=== PATIENT | female | born 1965 | race Caucasian/White ===

== ENCOUNTER 2024-04-26 14:04 | Emergency (ER) | payer OTHER ==
[2024-04-26 15:48] LABS: Absolute Basophils 0.1 K/uL (0-0.5); Absolute Eosinophils 1.1 K/uL (0-0.5); Absolute Lymphocytes (CBC) 2.3 K/uL (0.7-4.9); Absolute Monocytes 0.6 K/uL (0.1-1.3); Absolute Neutrophil 5.1 K/uL (1.8-8.0); Basophils % 0.7 % (0-1.3); Eosinophils % 12.2 % (0-4.4); Hemoglobin 16.3 g/dL (12.0-15.0); Lymphocytes % 25.1 % (15.3-44.8); MCH 32.8 pg (27.0-35.0); MCHC 34.6 g/dL (32.0-36.0); MCV 94.7 fL (80-100); MPV 9.2 fL (7.6-11.3); Monocytes % 6.8 % (3.3-12.3); Neutrophils % 55.2 % (41.7-73.7); Platelets 211 thou/uL (152-406); RBC Red Blood Cell Count 4.97 M/uL (3.86-4.86); Red Cell Distribution Width 12.7 % (12.1-15.2)
[2024-04-26] MEDS ORDERED: FAMOTIDINE 20 MG/2 ML VIAL IV ONE (16:01)
[2024-04-26 16:04] LABS: Albumin 4.1 g/dL (3.4-5.0); Albumin/Globulin Ratio 1.1 (1.1-1.8); Bilirubin Total 0.5 mg/dL (0.2-1.0); Globulin 3.8 g/dL (2.3-3.5); Protein, Total 7.9 g/dL (6.4-8.2)
--- NOTE | 2024-04-26 16:50 | RAD REPORT ---
EXAMINATION: CT Abdomen Pelvis W Contrast CLINICAL INDICATION: Female, 58 years old. ABD PAIN TECHNIQUE: CT abdomen and pelvis was performed, after the administration of IV contrast, as per [facility] protocol. Axial, sagittal and coronal reconstructions were obtained. One or more of the following dose reduction techniques were used: Automated exposure control, adjustment of the mA and k V according to patient size, and iterative reconstruction. Unless otherwise specified, incidental findings do not require dedicated imaging follow-up. COMPARISON: No prior exam. FINDINGS: LOWER CHEST: The visualized lung bases are clear. LIVER: Normal in size and contour. Multiple subcentimeter hypoattenuating parenchymal lesions, nonspe cific, but may suggest small cysts. No suspicious focal lesion. BILIARY SYSTEM: No suspicious abnormalities. SPLEEN: Normal size. No focal lesion. PANCREAS: No mass, ductal dilation, or ubaldo-pancreatic fluid. ADRENALS: Normal; no mass. KIDNEYS: Normal size and contour. No hydronephrosis. URINARY BLADDER: Suboptimally distended limiting evaluation. GASTROINTESTINAL TRACT: Fluid opacification along the ascending and proximal transverse colon, nonspe cific. No evidence of free air, significant intra-abdominal free fluid, bowel obstruction or abscess. APPENDIX: Normal appendix. LYMPH NODES: No lymphadenopathy. MUSCULOSKELETAL: No acute or suspicious osseous abnormality. ADDITIONAL FINDINGS: None. IMPRESSION: Nonspecific fluid opacification of nondistended ascending and proximal transverse colon, this may rel ate to diarrheal state. No other acute or concerning abnormalities seen in the abdomen or pelvis.
--- NOTE | 2024-04-26 17:00 | EDPHYS ---
Physician Documentation [facility] Name: Stephania Brunson Age: 58 yrs Sex: Female : 1965 Arrival Date: 04/26/2024 Time: 14:04 Bed 10 Private MD: ED Physician Julien Sanchez HPI: 04/26 15:33 This 58 yrs old Female presents to ER via Ambulatory with complaints of Abdominal Pain, ms3 Diarrhea. 16:49 Stephania Brunson presents to the Emergency Department with persistent epigastric abdominal ms3 pain. The patient also reports diarrhea and significant stomach pain, both persisting for the past two months. An upper endoscopy was performed last week by Dr. Poe, which revealed gastritis in the antrum and a hiatal hernia at the distal end of the esophagus. The patient's current pain level is 7 out of 10. The patient is not on any current anti-acid medications.. Historical: - Allergies: 14:15 No Known Allergies; tm6 - PMHx: 14:15 Depressive disorder; tm6 - PSHx: 14:15 partial hysterectomy; breast implants; tm6 - Immunization history:: Flu vaccine is not up to date. - Infectious Disease History:: Denies. - Social history:: Smoking status: Patient denies any tobacco usage or history of. ROS: 16:49 Constitutional: Negative for fever, and chills. Cardiovascular: Negative for chest ms3 pain, and palpitations. Respiratory: Negative for shortness of breath, cough, wheezing, and pleuritic chest pain, 16:49 MS/Extremity: Negative for injury and deformity, Skin: Negative for injury, rash, and discoloration, 16:49 Abdomen/GI: Positive for abdominal pain, diarrhea, Exam: 16:49 Constitutional: This is a well developed, well nourished patient who is awake, alert, ms3 and in no acute distress. Chest/axilla: Normal chest wall appearance and motion. Nontender with no deformity. Cardiovascular: Regular rate and rhythm with a normal S1 and S2. No gallops, murmurs, or rubs. Normal PMI, no JVD. No pulse deficits. Respiratory: Lungs have equal breath sounds bilaterally, clear to auscultation and percussion. No rales, rhonchi or wheezes noted. No increased work of breathing, no retractions or nasal flaring. 16:49 Abdomen/GI: Inspection: abdomen appears normal, Bowel sounds: normal, Palpation: moderate abdominal tenderness, in the epigastric area, Vital Signs: 14:14 BP 138 / 84; Pulse 68; Resp 17; Temp 98.2(O); Pulse Ox 100% on R/A; MAP 97 mmHg; Weight tm6 72.57 kg; Height 5 ft. 7 in. ; Pain 7/10; 14:14 Body Mass Index 25.06 (72.57 kg, 170.18 cm) tm6 14:14 Pain Scale: Adult tm6 MDM: 14:32 Medical Screening Exam initiated ms3 16:49 Differential diagnosis: Nonspecific abd pain, gastritis, pancreatitis. ms3 20:39 Data reviewed: vital signs, nurses notes, lab test result(s), radiologic studies, and ms3 as a result, I will discharge patient. I considered the following discharge prescriptions or medication management in the emergency department Medications were administered in the Emergency Department. See MAR. Counseling: I had a detailed discussion with the patient and/or guardian regarding the historical points, exam findings, and any diagnostic results supporting the discharge/admit diagnosis, lab results, radiology results, the need for outpatient follow up, to return to the emergency department if symptoms worsen or persist or if there are any questions or concerns that arise at home. Special discussion: Based on the patient's Hx, exam, and Dx evaluation, there is no indication for emergent surgery or inpatient Tx. It is understood by the patient/guardian that if the Sx's persist or worsen they need to return immediately for re-evaluation. ED course: Discussed labs and imaging with the patient and her . Patient to follow-up with Dr. Spaulding in 2 to 3 days. Patient understands and agrees with plan. Patient given prescription for Pepcid 20 mg twice daily. Return precautions discussed include worsening symptoms, or any other concerns. 04/26 14:32 Order name: CBC with Diff; Complete Time: 16:44 ms3 04/26 14:32 Order name: CMP; Complete Time: 16:44 ms3 04/26 14:32 Order name: Lipase; Complete Time: 16:44 ms3 04/26 14:32 Order name: CT Abd/Pelvis - IV Contrast Only; Complete Time: 16:54 ms3 04/26 14:32 Order name: IV Saline Lock; Complete Time: 15:56 ms3 04/26 14:32 Order name: Labs collected and sent; Complete Time: 15:56 ms3 Administered Medications: 16:11 Drug: Famotidine IVP 20 mg IVP once; dilute with 10 mL 0.9% NaCl; give over 2 minutes jb4 Route: IVP; Site: right antecubital; 17:16 Follow up: Response: No adverse reaction; Marked relief of symptoms jb4 Disposition Summary: 04/26/24 17:00 Discharge Ordered Notes: Location: Home ms3 Condition: Stable ms3 Diagnosis - Upper abdominal pain, unspecified ms3 - Diarrhea, unspecified ms3 - Polycythemia vera ms3 Followup: ms3 - With: Yimi Poe MD - When: 2 - 3 days - Reason: Re-evaluation by your physician Discharge Instructions: - Discharge Summary Sheet ms3 - Abdominal Pain, Adult ms3 - Diarrhea, Adult ms3 Forms: - Medication Reconciliation Form ms3 - Antibiotic Education ms3 - Prescription Opioid Use ms3 - Patient Portal Instructions ms3 - Leadership Thank You Letter ms3 Prescriptions: - Pepcid 20 mg Oral Tablet - take 1 tablet ORAL route every 12 hours for 10 days; 20 tablet; Refills: 0, ms3 Product Selection Permitted Signatures: Dispatcher [employer] Gómez Seymour, RN RN jb4 Julien Sanchez DO DO ms3 Milana Denis RN RN tm6
--- NOTE | 2024-04-26 17:00 | ER ---
Nurse's Notes [facility] Name: Stephania Brunson Age: 58 yrs Sex: Female : 1965 Arrival Date: 04/26/2024 Time: 14:04 Bed 10 Private MD: Diagnosis: Upper abdominal pain, unspecified;Diarrhea, unspecified;Polycythemia vera Presentation: 04/26 14:15 Chief complaint: Patient states: been dealing with epigastric pain x2 months, will not tm6 go away. I had an upper GI scope done last week, have not gotten results yet. My throat is hoarse, I have a cough. I have had diarrhea x2 months. It feels like I constantly have to have a bowel movement. Coronavirus screen: Client denies travel out of the [place] in the last 14 days. Ebola Screen: Patient negative for fever greater than or equal to 101.5 degrees Fahrenheit, and additional compatible Ebola Virus Disease symptoms Patient denies exposure to infectious person. Patient denies travel to an Ebola-affected area in the 21 days before illness onset. No symptoms or risks identified at this time. Initial Sepsis Screen: Does the patient meet any 2 criteria? No. Patient's initial sepsis screen is negative. Does the patient have a suspected source of infection? No. Patient's initial sepsis screen is negative. Risk Assessment: Do you want to hurt yourself or someone else? Patient reports no desire to harm self or others. Onset of symptoms was February 25, 2024. 14:15 Method Of Arrival: Ambulatory tm6 14:15 Acuity: ZAK 3 tm6 Triage Assessment: 14:15 General: Appears in no apparent distress. Behavior is calm, cooperative. Pain: tm6 Complains of pain in epigastric area. EENT: No signs and/or symptoms were reported regarding the EENT system. EENT: Reports hoarseness. Neuro: Level of Consciousness is awake, alert, obeys commands, Oriented to person, place, time, situation. Cardiovascular: Patient's skin is warm and dry. Respiratory: Reports cough that is Airway is patent Respiratory effort is even, unlabored, Respiratory pattern is. GI: Reports diarrhea, epigastric pain, since x2 months. : No signs and/or symptoms were reported regarding the genitourinary system. Derm: No signs and/or symptoms reported regarding the dermatologic system. Musculoskeletal: No signs and/or symptoms reported regarding the musculoskeletal system. Historical: - Allergies: 14:15 No Known Allergies; tm6 - PMHx: 14:15 Depressive disorder; tm6 - PSHx: 14:15 partial hysterectomy; breast implants; tm6 - Immunization history:: Flu vaccine is not up to date. - Infectious Disease History:: Denies. - Social history:: Smoking status: Patient denies any tobacco usage or history of. Screenin:14 [facility] ED Fall Risk Assessment (Adult) History of falling in the last 3 months, jb4 including since admission No falls in past 3 months (0 pts) Confusion or Disorientation No (0 pts) Intoxicated or Sedated No (0 pts) Impaired Gait No (0 pts) Mobility Assist Device Used No (0 pt) Altered Elimination No (0 pt) Score/Fall Risk Level 0 - 2 = Low Risk Oriented to surroundings, Maintained a safe environment. Abuse screen: Denies threats or abuse. Nutritional screening: No deficits noted. Tuberculosis screening: No symptoms or risk factors identified. Assessment: 17:14 Reassessment: Patient appears in no apparent distress at this time. Patient and/or jb4 family updated on plan of care and expected duration. Pain level reassessed. Patient is alert, oriented x 3, equal unlabored respirations, skin warm/dry/pink. Patient states feeling better. Vital Signs: 14:14 BP 138 / 84; Pulse 68; Resp 17; Temp 98.2(O); Pulse Ox 100% on R/A; MAP 97 mmHg; Weight tm6 72.57 kg; Height 5 ft. 7 in. ; Pain 7/10; 14:14 Body Mass Index 25.06 (72.57 kg, 170.18 cm) tm6 14:14 Pain Scale: Adult tm6 ED Course: 14:06 Patient arrived in ED. mr 14:11 Julien Sanchez DO is Attending Physician. ms3 14:15 Arm band placed on left wrist. tm6 14:18 Triage completed. tm6 15:24 Patient placed in an exam room, on a stretcher. ll1 15:40 Inserted saline lock: 18 gauge in right antecubital area, using aseptic technique. jb4 Blood collected. 15:56 CBC with Diff Sent. jb4 15:56 CMP Sent. jb4 15:56 Lipase Sent. jb4 16:18 CT Abd/Pelvis - IV Contrast Only In Process Unspecified. EDMS 16:59 Yimi Poe MD is Referral Physician. ms3 17:14 Patient has correct armband on for positive identification. Bed in low position. Call jb4 light in reach. Side rails up X 1. Provided Education on: discharge instructions.. 17:14 No provider procedures requiring assistance completed. IV discontinued, intact, jb4 bleeding controlled, No redness/swelling at site. Pressure dressing applied. Administered Medications: 16:11 Drug: Famotidine IVP 20 mg IVP once; dilute with 10 mL 0.9% NaCl; give over 2 minutes jb4 Route: IVP; Site: right antecubital; 17:16 Follow up: Response: No adverse reaction; Marked relief of symptoms jb4 Medication: 17:14 VIS not applicable for this client. jb4 Outcome: 17:00 Discharge ordered by . ms3 17:16 Discharged to home ambulatory, with family, jb4 17:16 Condition: stable 17:16 Discharge instructions given to patient, Instructed on discharge instructions, follow up and referral plans. medication usage, Demonstrated understanding of instructions, follow-up care, medications, Prescriptions given X 1, 17:17 Patient left the ED. jb4 Signatures: Dispatcher [employer] EDCO Alice Meehan, Reg Reg mr Gómez Bowling, RN RN jb4 Rylie Kiran RN RN ll1 Julien Sanchez DO DO ms3 Milana Denis, RN RN tm6
[2024-04-26 17:57] VITALS: BP 138/84; TEMP 98.2; O2SAT 100
== END 2024-04-26 17:17 | disposition home or self-care (01) ==
LOC: ER 14:04
DX: R10.13 Epigastric pain (principal); R19.7 Diarrhea, unspecified; D45 Polycythemia vera; Z98.82 Breast implant status
CPT/HCPCS: 85025; 36415; 83690; 80053; 74177; 96374; 99284; Q9967

== ENCOUNTER 2024-05-01 17:13 | Emergency (ER) | payer OTHER ==
--- NOTE | 2024-05-01 18:00 | RAD REPORT ---
EXAM: Chest Single View HISTORY: ABDOMINAL DISTENTION COMPARISON: None. FINDINGS: LUNGS/PLEURA: The lungs are clear. No pleural effusions or pneumothorax. No pulmonary edema. MEDIASTINUM: The mediastinal silhouette is within normal limits. CARDIAC: The cardiac silhouette is within normal limits. UPPER ABDOMEN: No significant abnormality. BONES: No acute abnormality. LINES/TUBES/OTHER: N/A IMPRESSION: No evidence of acute cardiopulmonary disease.
[2024-05-01 18:09] LABS: PT Prothrombin Time 11.4 SECONDS (9.4-12.5); Protime INR 1.09
[2024-05-01] MEDS ORDERED: FENTANYL CITR 100 MCG/2 ML ONE (18:09)
[2024-05-01] MEDS ORDERED: FAMOTIDINE 20 MG/2 ML VIAL IV ONE (18:09)
[2024-05-01] MEDS ORDERED: ONDANSETRON 4 MG/2 ML VIAL ONE (18:09)
[2024-05-01 18:15] LABS: Absolute Basophils 0.1 K/uL (0-0.5); Absolute Eosinophils 0.2 K/uL (0-0.5); Absolute Lymphocytes (CBC) 2.4 K/uL (0.7-4.9); Absolute Monocytes 0.6 K/uL (0.1-1.3); Basophils % 0.8 % (0-1.3); Eosinophils % 2.3 % (0-4.4); Hematocrit 44.8 % (36.0-45.0); Hemoglobin 15.5 g/dL (12.0-15.0); Lymphocytes % 25.5 % (15.3-44.8); MCH 32.8 pg (27.0-35.0); MCHC 34.5 g/dL (32.0-36.0); MPV 8.6 fL (7.6-11.3); Monocytes % 6.2 % (3.3-12.3); Neutrophils % 65.2 % (41.7-73.7); Nucleated Red Blood Cells % 0.1 % (0-0); Platelets 202 thou/uL (152-406); RBC Red Blood Cell Count 4.71 M/uL (3.86-4.86); Red Cell Distribution Width 12.8 % (12.1-15.2)
[2024-05-01 18:24] LABS: Albumin 3.8 g/dL (3.4-5.0); Albumin/Globulin Ratio 1.1 (1.1-1.8); Anion Gap 9.6 mEq/L (5.0-15.0); Bilirubin Direct 0.2 mg/dL (0-0.2); Bilirubin Indirect, Calculated 0.6 mg/dL (0.2-0.8); Bilirubin Total 0.8 mg/dL (0.2-1.0); Globulin 3.6 g/dL (2.3-3.5); Magnesium 2.1 mg/dL (1.6-2.4); Potassium 3.6 mEq/L (3.5-5.1); Protein, Total 7.4 g/dL (6.4-8.2); Troponin High Sensitivity 3.3 pg/mL (<58.9)
--- NOTE | 2024-05-01 19:08 | RAD REPORT ---
EXAMINATION: CT ABDOMEN AND PELVIS WITH CONTRAST CLINICAL INDICATION: Female, 58 years old.ABD PAIN TECHNIQUE: CT abdomen and pelvis was performed, after the administration of IV contrast[facility]. Axial, sagittal and coronal reconstructions were obtained. One or more of the following dose reduction techniques were used: Automated exposure control, adjustment of the mA and/o r kV according to patient size, and/or iterative reconstruction. Unless otherwise specified, incidental findings do not require dedicated imaging follow-up. [id number]. COMPARISON: 04/26/2024 FINDINGS: LOWER CHEST: No acute process identified.No significant pericardial effusion. Bilateral breast prosth eses.Mild circumferential thickening of the distal esophagus which could reflect esophagitis. UPPER GI: No significant abnormality. LIVER: Benign appearing low density liver lesions. No suspicious mass. GALLBLADDER/BILE DUCTS: No biliary ductal dilatation.? PANCREAS: No mass, ductal dilation, or ubaldo-pancreatic fluid. SPLEEN: Unremarkable. ADRENALS: No adrenal masses. KIDNEYS AND URETERS: No hydronephrosis.No suspicious renal mass. ABDOMINAL AORTA AND OTHER VESSELS: Normal caliber aorta and IVC. PERITONEUM: No abnormal free fluid. No free air. LYMPH NODES: No pathologic lymphadenopathy. ABDOMINAL WALL: Unremarkable SMALL BOWEL/COLON: Small bowel has normal course and caliber. No colonic wall thickening or pericolon ic inflammatory changes.Normal appendix. Small bowel fluid on the prior exam is not well assessed on this exam as there is now oral contrast. URINARY BLADDER: Underdistended but grossly unremarkable. REPRODUCTIVE ORGANS: Uterus surgically absent. No adnexal abnormality. MUSCULOSKELETAL: No acute or suspicious osseous abnormality. 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 ADDITIONAL FINDINGS: None. IMPRESSION: No acute or significant abnormalities seen in the abdomen or pelvis. Normal appendix.
[2024-05-01] MEDS ORDERED: MAGNES/ALUMIN/SIMET 30ML UCUP ONE (19:30)
[2024-05-01] MEDS ORDERED: LIDOCAINE VISCOUS 2% 10ML ORAL SOLN ONE (19:30)
[2024-05-01] MEDS ORDERED: PANTOPRAZOLE 40 MG INJ ONE (19:31)
--- NOTE | 2024-05-01 19:39 | ER ---
Nurse's Notes [facility] Name: Stephania Brunson Age: 58 yrs Sex: Female : 1965 Arrival Date: 05/01/2024 Time: 17:13 Bed 8 Private MD: Diagnosis: Diarrhea, unspecified;Abdominal pain, Generalized;Epigastric abdominal tenderness;Congenital hiatus hernia Presentation: 05/01 17:27 Chief complaint: Patient states: "I was seen here a few days ago and I am not getting aa5 better, I haven't eaten in 2 days and I am still having abdominal pain". Coronavirus screen: diarrhea. Ebola Screen: Patient denies travel to an Ebola-affected area in the 21 days before illness onset. Initial Sepsis Screen: Does the patient meet any 2 criteria? No. Patient's initial sepsis screen is negative. Does the patient have a suspected source of infection? No. Patient's initial sepsis screen is negative. Risk Assessment: Do you want to hurt yourself or someone else? Patient reports no desire to harm self or others. Onset of symptoms was May 01, 2024. 17:27 Acuity: ZAK 3 aa5 17:27 Method Of Arrival: Ambulatory aa5 Historical: - Allergies: 17:29 No Known Allergies; aa5 - Home Meds: 17:29 Cymbalta oral [Active]; aa5 - PMHx: 17:29 depressive disorder; aa5 - PSHx: 17:29 breast implants; partial hysterectomy; aa5 - Immunization history:: Adult Immunizations unknown. - Infectious Disease History:: Denies. - Social history:: Smoking status: Patient denies any tobacco usage or history of. - Family history:: not pertinent. Screenin:14 [facility] ED Fall Risk Assessment (Adult) History of falling in the last 3 months, ph including since admission No falls in past 3 months (0 pts) Confusion or Disorientation No (0 pts) Intoxicated or Sedated No (0 pts) Impaired Gait No (0 pts) Mobility Assist Device Used No (0 pt) Altered Elimination No (0 pt) Score/Fall Risk Level 0 - 2 = Low Risk Oriented to surroundings, Maintained a safe environment, Hourly rounding (assess needs \\T\\ fall precautionary measures) done. Abuse screen: Denies threats or abuse. Denies injuries from another. Nutritional screening: No deficits noted. Tuberculosis screening: No symptoms or risk factors identified. Assessment: 18:30 General: Appears in no apparent distress. comfortable, well groomed, Behavior is calm, ph cooperative, appropriate for age. General: Behavior is. Pain: Complains of pain in abdomen. Neuro: Level of Consciousness is awake, alert, obeys commands, Oriented to person, place, time, situation. Cardiovascular: Capillary refill < 3 seconds in bilateral fingers Patient's skin is warm and dry. Respiratory: Airway is patent Respiratory effort is even, labored. GI: Reports lower abdominal pain, upper abdominal pain. Derm: Skin is pink, warm \\T\\ dry. 19:54 Reassessment: Patient appears in no apparent distress at this time. Patient and/or bm8 family updated on plan of care and expected duration. Pain level reassessed. Patient is alert, oriented x 3, equal unlabored respirations, skin warm/dry/pink. General: Appears in no apparent distress. comfortable, Behavior is calm, cooperative, appropriate for age. Pain: Denies pain. Neuro: No deficits noted. Level of Consciousness is awake, alert, obeys commands, Oriented to person, place, time, situation, Appropriate for age. Cardiovascular: Denies chest pain, Capillary refill < 3 seconds in bilateral fingers Patient's skin is warm and dry. Respiratory: Airway is patent Respiratory effort is even, unlabored, Respiratory pattern is regular, symmetrical. GI: No signs and/or symptoms were reported involving the gastrointestinal system. Abdomen is flat, non-distended, Bowel sounds present X 4 quads. Abd is soft and non tender Patient currently denies abdominal pain, nausea, pain. : No signs and/or symptoms were reported regarding the genitourinary system. EENT: No signs and/or symptoms were reported regarding the EENT system. Derm: No signs and/or symptoms reported regarding the dermatologic system. Musculoskeletal: No signs and/or symptoms reported regarding the musculoskeletal system. Vital Signs: 17:27 BP 133 / 93; Pulse 76; Resp 16 S; Temp 98.4(O); Pulse Ox 100% on R/A; Weight 72.57 kg aa5 (R); Height 5 ft. 7 in. (R); 19:54 BP 142 / 82; Pulse 63; Resp 17; Temp 98.4; Pulse Ox 100% ; Pain 0/10; bm8 17:27 Body Mass Index 25.06 (72.57 kg, 170.18 cm) aa5 19:54 Pain Scale: Adult bm8 [place] Score: 19:54 Eye Response: spontaneous(4). Motor Response: obeys commands(6). Verbal Response: bm8 oriented(5). Total: 15. ED Course: 17:16 Patient arrived in ED. al6 17:17 John Alas MD is Attending Physician. arleth 17:27 Arm band placed on. aa5 17:29 Triage completed. aa5 17:49 XRAY Chest (1 view) In Process Unspecified. EDMS 17:54 Inserted saline lock: 18 gauge in right antecubital area, using aseptic technique. jb4 Blood collected. 17:59 Basic Metabolic Panel Sent. jb4 17:59 CBC with Diff Sent. jb4 17:59 LFT's Sent. jb4 17:59 Magnesium Sent. jb4 17:59 NT PRO-BNP Sent. jb4 17:59 PT-INR Sent. jb4 17:59 Troponin HS Sent. jb4 17:59 Lipase Sent. jb4 17:59 Lactate w/ 2H reflex if indic. Sent. jb4 18:23 Shabnam Mendez, RN is Primary Nurse. ph 18:54 CT Abd/Pelvis - PO and IV Contrast In Process Unspecified. EDMS 19:14 Patient has correct armband on for positive identification. Placed in gown. Bed in low ph position. Call light in reach. Side rails up X 1. Pulse ox on. NIBP on. Door closed. Noise minimized. 19:32 US Abdomen Limited In Process Unspecified. EDMS 19:38 Yimi Poe MD is Referral Physician. arleth 19:38 Jose Rivero MD is Referral Physician. [facility] 19:54 Provided Education on: post er care. bm8 19:54 No provider procedures requiring assistance completed. IV discontinued, intact, bm8 bleeding controlled, No redness/swelling at site. Pressure dressing applied. Administered Medications: 18:19 Drug: fentaNYL (PF) IVP 25 mcg IVP once Route: IVP; Site: right antecubital; jb4 19:53 Follow up: Response: No adverse reaction bm8 18:19 Drug: fentaNYL (PF) IVP 25 mcg IVP once Route: IVP; Site: right antecubital; jb4 19:53 Follow up: Response: No adverse reaction bm8 18:19 Drug: Ondansetron IVP 4 mg IVP once; over 2 minutes Route: IVP; Site: right antecubital;jb4 19:53 Follow up: Response: No adverse reaction bm8 18:20 Drug: Famotidine IVP 20 mg IVP once; dilute with 10 mL 0.9% NaCl; give over 2 minutes jb4 Route: IVP; Site: right antecubital; 19:54 Follow up: Response: No adverse reaction bm8 19:53 Drug: Pantoprazole IVP 80 mg IVP once Route: IVP; Site: right antecubital; bm8 19:53 Follow up: Response: No adverse reaction bm8 19:53 Drug: GI Cocktail without - (Maalox PO 30 ml, Lidocaine Mucous Membrane 2 % 15 bm8 ml) PO once Route: PO; 19:53 Follow up: Response: No adverse reaction bm8 Medication: 19:14 VIS not applicable for this client. ph Outcome: 19:38 Discharge ordered by . arleth 19:54 Discharged to home ambulatory, bm8 19:54 Condition: stable 19:54 Discharge instructions given to patient, family, Instructed on discharge instructions, follow up and referral plans. Demonstrated understanding of instructions, follow-up care, medications, Prescriptions given X 4, 20:12 Patient left the ED. bm8 Signatures: Dispatcher [employer] EDMS John Alas MD MD cha Calderon, Audri RN RN aa5 Shabnam Mendez RN RN ph Bryson, James, RN RN jb4 Brant Bowman RN RN bm8 Charla Griffith al6 Corrections: (The following items were deleted from the chart) 17:30 17:27 72.57 kg Reported; Height 5 ft. 7 in. Reported; BMI: 25.0; aa5 aa5
--- NOTE | 2024-05-01 19:39 | EDPHYS ---
Physician Documentation [facility] Name: Stephania Brunson Age: 58 yrs Sex: Female : 1965 Arrival Date: 05/01/2024 Time: 17:13 Bed 8 Private MD: ED Physician John Alas HPI: 05/01 19:13 This 58 yrs old Female presents to ER via Ambulatory with complaints of arleth Abdominal Pain, Decreased Appetite. 19:13 The patient presents with abdominal pain in the epigastric area, in the upper abdomen. arleth Onset: The symptoms/episode began/occurred 3 day(s) ago. The symptoms do not radiate. Associated signs and symptoms: Pertinent positives: diarrhea, nausea. The symptoms are described as burning, crampy. Modifying factors: The symptoms are alleviated by nothing, the symptoms are aggravated by food. Severity of pain: At its worst the pain was moderate in the emergency department the pain has improved moderately. The patient has experienced similar episodes in the past, multiple times. Historical: - Allergies: 17:29 No Known Allergies; aa5 - Home Meds: 17:29 Cymbalta oral [Active]; aa5 - PMHx: 17:29 depressive disorder; aa5 - PSHx: 17:29 breast implants; partial hysterectomy; aa5 - Immunization history:: Adult Immunizations unknown. - Infectious Disease History:: Denies. - Social history:: Smoking status: Patient denies any tobacco usage or history of. - Family history:: not pertinent. ROS: 19:13 Constitutional: Negative for fever, chills, and weight loss, Eyes: Negative for injury, arleth pain, redness, and discharge, ENT: Negative for injury, pain, and discharge, Neck: Negative for injury, pain, and swelling, Cardiovascular: Negative for chest pain, palpitations, and edema, Respiratory: Negative for shortness of breath, cough, wheezing, and pleuritic chest pain, Back: Negative for injury and pain, : Negative for injury, bleeding, discharge, and swelling, MS/Extremity: Negative for injury and deformity, Skin: Negative for injury, rash, and discoloration, Neuro: Negative for headache, weakness, numbness, tingling, and seizure, Psych: Negative for depression, anxiety, suicide ideation, homicidal ideation, and hallucinations, Allergy/Immunology: Negative for hives, rash, and allergies, Endocrine: Negative for neck swelling, polydipsia, polyuria, polyphagia, and marked weight changes, Hematologic/Lymphatic: Negative for swollen nodes, abnormal bleeding, and unusual bruising, 19:13 Abdomen/GI: Positive for abdominal pain, nausea and vomiting, diarrhea, of the epigastric area, right upper quadrant and left upper quadrant, Exam: 19:13 Constitutional: This is a well developed, well nourished patient who is awake, alert, arleth and in no acute distress. Head/Face: Normocephalic, atraumatic. Eyes: Pupils equal round and reactive to light, extra-ocular motions intact. Lids and lashes normal. Conjunctiva and sclera are non-icteric and not injected. Cornea within normal limits. Periorbital areas with no swelling, redness, or edema. ENT: Nares patent. No nasal discharge, no septal abnormalities noted. Tympanic membranes are normal and external auditory canals are clear. Oropharynx with no redness, swelling, or masses, exudates, or evidence of obstruction, uvula midline. Mucous membranes moist. Neck: Trachea midline, no thyromegaly or masses palpated, and no cervical lymphadenopathy. Supple, full range of motion without nuchal rigidity, or vertebral point tenderness. No Meningismus. Chest/axilla: Normal chest wall appearance and motion. Nontender with no deformity. No lesions are appreciated. Cardiovascular: Regular rate and rhythm with a normal S1 and S2. No gallops, murmurs, or rubs. Normal PMI, no JVD. No pulse deficits. Respiratory: Lungs have equal breath sounds bilaterally, clear to auscultation and percussion. No rales, rhonchi or wheezes noted. No increased work of breathing, no retractions or nasal flaring. Back: No spinal tenderness. No costovertebral tenderness. Full range of motion. Skin: Warm, dry with normal turgor. Normal color with no rashes, no lesions, and no evidence of cellulitis. MS/ Extremity: Pulses equal, no cyanosis. Neurovascular intact. Full, normal range of motion., bilateral aka Neuro: Awake and alert, GCS 15, oriented to person, place, time, and situation. Cranial nerves II-XII grossly intact. Motor strength 5/5 in all extremities. Sensory grossly intact. Cerebellar exam normal. Normal gait. Psych: Awake, alert, with orientation to person, place and time. Behavior, mood, and affect are within normal limits. 19:13 ECG was reviewed by the Attending Physician. 19:13 Abdomen/GI: Inspection: abdomen appears normal, Bowel sounds: normal, Palpation: moderate abdominal tenderness, in the epigastric area, right upper quadrant and left upper quadrant, Liver: no appreciated palpable abnormalities, Hernia: not appreciated, Vital Signs: 17:27 BP 133 / 93; Pulse 76; Resp 16 S; Temp 98.4(O); Pulse Ox 100% on R/A; Weight 72.57 kg aa5 (R); Height 5 ft. 7 in. (R); 19:54 BP 142 / 82; Pulse 63; Resp 17; Temp 98.4; Pulse Ox 100% ; Pain 0/10; bm8 17:27 Body Mass Index 25.06 (72.57 kg, 170.18 cm) aa5 19:54 Pain Scale: Adult bm8 Anatoly Coma Score: 19:54 Eye Response: spontaneous(4). Motor Response: obeys commands(6). Verbal Response: bm8 oriented(5). Total: 15. MDM: 17:17 Medical Screening Exam initiated arleth 19:17 Differential diagnosis: bowel obstruction, gastritis, gastroesophageal reflux disease, arleth GI Bleed, Mesenteric ischemia or infarction, non-specific abd pain, pancreatitis, Peptic Ulcer Disease, Perf. Duodenal Ulcer, Perf. Gastric Ulcer, Ureterolithiasis, urinary tract infection. Data reviewed: vital signs, nurses notes, lab test result(s), EKG, radiologic studies, CT scan, plain films, ultrasound. Consideration of Admission/Observation Escalation of care including admission/observation considered. I considered the following discharge prescriptions or medication management in the emergency department Medications were administered in the Emergency Department. See MAR. Independent interpretation of the following test(s) in the Emergency Department EKG: See my EKG interpretation above. Test considered but Not performed: MRI: NO MRCP. Historians other than the Patient: Spouse/Significant Other: WELL INFORMED. Care significantly affected by the following chronic conditions: DEPRESSION. Counseling: I had a detailed discussion with the patient and/or guardian regarding the historical points, exam findings, and any diagnostic results supporting the discharge/admit diagnosis, lab results, radiology results, the need for outpatient follow up, for definitive care, a family practitioner, a general surgeon, a human resource officer. 05/01 17:18 Order name: Basic Metabolic Panel; Complete Time: 19:04 05/01 17:18 Order name: CBC with Diff; Complete Time: 18:20 arleth 05/01 17:18 Order name: LFT's; Complete Time: 19:04 05/01 17:18 Order name: Magnesium; Complete Time: 19:04 05/01 17:18 Order name: NT PRO-BNP; Complete Time: 19:04 05/01 17:18 Order name: PT-INR; Complete Time: 18:20 05/01 17:18 Order name: Troponin HS; Complete Time: 19:04 05/01 17:18 Order name: Lipase; Complete Time: 19:04 [facility] 05/01 17:19 Order name: Lactate w/ 2H reflex if indic.; Complete Time: 19:04 [facility] 05/01 17:18 Order name: XRAY Chest (1 view); Complete Time: 18:20 05/01 17:18 Order name: CT Abd/Pelvis - PO and IV Contrast; Complete Time: 19:11 05/01 19:12 Order name: US Abdomen Limited; Complete Time: 20:05 05/01 17:18 Order name: EKG; Complete Time: 17:19 [facility] 05/01 17:18 Order name: Cardiac monitoring; Complete Time: 18:52 05/01 17:18 Order name: EKG - Nurse/Tech; Complete Time: 18:52 05/01 17:18 Order name: IV Saline Lock; Complete Time: 17:59 05/01 17:18 Order name: Labs collected and sent; Complete Time: 17:59 05/01 17:18 Order name: O2 Per Protocol; Complete Time: 17:59 05/01 17:18 Order name: O2 Sat Monitoring; Complete Time: 17:59 [facility] EC:13 Rate is 59 beats/min. Rhythm is regular. QRS [place] is Normal. [place] interval is normal. QRS arleth interval is normal. QT interval is normal. No Q waves. T waves are Normal. No ST changes noted. Clinical impression: Normal ECG, Sinus bradycardia, and No evidence of ischemia. Interpreted by me. Reviewed by me. Administered Medications: 18:19 Drug: fentaNYL (PF) IVP 25 mcg IVP once Route: IVP; Site: right antecubital; jb4 19:53 Follow up: Response: No adverse reaction bm8 18:19 Drug: fentaNYL (PF) IVP 25 mcg IVP once Route: IVP; Site: right antecubital; jb4 19:53 Follow up: Response: No adverse reaction bm8 18:19 Drug: Ondansetron IVP 4 mg IVP once; over 2 minutes Route: IVP; Site: right antecubital;jb4 19:53 Follow up: Response: No adverse reaction bm8 18:20 Drug: Famotidine IVP 20 mg IVP once; dilute with 10 mL 0.9% NaCl; give over 2 minutes jb4 Route: IVP; Site: right antecubital; 19:54 Follow up: Response: No adverse reaction bm8 19:53 Drug: Pantoprazole IVP 80 mg IVP once Route: IVP; Site: right antecubital; bm8 19:53 Follow up: Response: No adverse reaction bm8 19:53 Drug: GI Cocktail without - (Maalox PO 30 ml, Lidocaine Mucous Membrane 2 % 15 bm8 ml) PO once Route: PO; 19:53 Follow up: Response: No adverse reaction bm8 Disposition Summary: 05/01/24 19:38 Discharge Ordered Notes: Location: Home arleth Problem: new arleth Symptoms: have improved arleth Condition: Stable arleth Diagnosis - Diarrhea, unspecified arleth - Abdominal pain, Generalized arleth - Epigastric abdominal tenderness arleth - Congenital hiatus hernia arleth Followup: arleth - With: Private Physician - When: 2 - 3 days - Reason: Recheck today's complaints, Continuance of care, Re-evaluation by your physician Followup: arleth - With: Yimi Poe MD - When: 2 - 3 days - Reason: Recheck today's complaints, Continuance of care, Re-evaluation by your physician Followup: arleth - With: Jose Rivero MD - When: 2 - 3 days - Reason: Recheck today's complaints, Re-evaluation by your physician Discharge Instructions: - Discharge Summary Sheet arleth - Abdominal Pain, Adult arleth - Food Choices to Help Relieve Diarrhea, Adult arleth - Diarrhea, Adult arleth - Hiatal Hernia arleth - Abdominal Pain, Adult, [id number] arleth Forms: - Medication Reconciliation Form arleth - Antibiotic Education arleth - Prescription Opioid Use arleth - Patient Portal Instructions arleth - Leadership Thank You Letter [facility] Prescriptions: - Carafate 100 mg/mL Oral suspension - take 10 milliliter ORAL route 4 times per day 20 MIN BEFORE MEALS AND BEFORE arleth BEDTIME; 300 milliliter; Refills: 0, Product Selection Permitted - ondansetron 4 mg Oral Tablet,disintegrating - take 1 tablet ORAL route every 6-8 hours PRN NAUSEA; 20 tablet; Refills: 0, [facility] Product Selection Permitted - Protonix 40 mg Oral Tablet - take 1 tablet ORAL route once daily; 30 tablet; Refills: 0, Product Selection [facility] Permitted - dicyclomine 10 mg/5 mL Oral solution - take 10 milliliters ORAL route 4 times per day; 200 milliliter; Refills: 0, [facility] Product Selection Permitted Signatures: Dispatcher [employer] EDMS John Alas MD MD cha Calderon, Audri, RN RN aa5 Gómez Bowling, RN RN jb4 Brant Bowman RN RN bm8 Corrections: (The following items were deleted from the chart) 17:19 17:19 BASIC METABOLIC PANEL+C.LAB.BRZ ordered. EDMS EDMS 17:19 17:19 CBC+H.LAB.BRZ ordered. EDMS EDMS 17:19 17:19 HEPATIC FUNCTION+C.LAB.BRZ ordered. EDMS EDMS 17:19 17:19 MAGNESIUM+C.LAB.BRZ ordered. EDMS EDMS 17:19 17:19 PROBNP+C.LAB.BRZ ordered. EDMS EDMS 17:19 17:19 PROTIME (+INR)+COAG.LAB.BRZ ordered. EDMS EDMS 17:19 17:19 Troponin High Sensitivity+C.LAB.BRZ ordered. EDMS EDMS 17:19 17:19 LIPASE+C.LAB.BRZ ordered. EDMS EDMS 17:19 17:19 Urinalysis+U.LAB.BRZ ordered. EDMS EDMS
--- NOTE | 2024-05-01 19:43 | RAD REPORT ---
Abdomen Exam Limited: 05/01/2024 7:12 PM CLINICAL HISTORY: ABD PAIN STUDY: Limited right upper quadrant ultrasound of abdomen. COMPARISON: Same day CT FINDINGS: Liver: Limited evaluation but grossly unremarkable. Bile ducts: No intrahepatic or extrahepatic biliary ductal dilatation. Common bile duct measures 3 mm. Gallbladder: Normal. No sonographic Smart sign. IMPRESSION: Unremarkable exam.
--- NOTE | 2024-05-02 11:47 | EKG ---
Test Date: 2024-05-01 Test Time: 18:45:40 Moisture Machine Tender: BARBARA MEASUREMENT RESULTS: Intervals: Rate: 59 MS: 134 QRSD: 84 QT: 418 QTc: 413 [place]: P: 79 MS: 134 QRS: 60 T: 70 INTERPRETIVE STATEMENTS: Sinus bradycardia Otherwise normal ECG No previous ECG available for comparison Electronically Signed On 05-02-24 11:46:25 REEL ASSEMBLER by Saúl Boykin
[2024-05-03 02:27] VITALS: BP 142/82; TEMP 98.4; O2SAT 100
== END 2024-05-01 20:12 | disposition home or self-care (01) ==
LOC: ER 17:13
DX: R10.13 Epigastric pain (principal); R19.7 Diarrhea, unspecified; R11.0 Nausea; F32.A Depression, unspecified; K44.9 Diaphragmatic hernia without obstruction or gangrene
CPT/HCPCS: 93005; 85025; 80048; 36415; 83735; 85610; 80076; 83605; 84484; 83690; 83880; 74177; 71045; 76705; 96375; 96374; 99284; Q9967; J2470; J3010; J2405

== ENCOUNTER 2024-06-14 13:36 | Emergency (ER) | payer OTHER ==
--- NOTE | 2024-06-14 14:37 | EDPHYS ---
Physician Documentation [facility] Name: Stephania Brunson Age: 58 yrs Sex: Female : 1965 Arrival Date: 06/14/2024 Time: 13:36 Bed DX3 Private MD: ED Physician Dacia Small HPI: 06/14 14:05 This 58 yrs old Female presents to ER via Ambulatory with complaints of Foot Injury. cp 14:05 The patient presents with an injury, pain, that is acute. The complaints affect the cp lateral aspect of left foot and dorsum of left foot. 14:05 Context: resulted from trip and fall over gas pump line this morning. cp Historical: - Allergies: 14:02 No Known Allergies; cm10 - PMHx: 14:02 depressive disorder; cm10 - PSHx: 14:02 breast implants; partial hysterectomy; cm10 - Immunization history:: Adult Immunizations up to date. - Infectious Disease History:: Denies. - Social history:: Smoking status: Patient denies any tobacco usage or history of. ROS: 14:10 MS/extremity: Positive for pain, tenderness, of the left foot, Negative for deformity, cp 14:10 Constitutional: Negative for body aches, chills, fever, cp 14:10 Neck: Negative for pain with movement, pain at rest, 14:10 Back: Negative for pain at rest, pain with movement, 14:10 Neuro: Negative for altered mental status, headache, loss of consciousness, syncope, weakness, 14:10 All other systems are negative, Exam: 14:13 Constitutional: The patient appears in no acute distress, alert, awake, well developed, cp well nourished, uncomfortable, 14:13 Head/Face: Normocephalic, atraumatic. cp 14:13 Neck: ROM/movement: is normal, is supple, without pain, no range of motions limitations, 14:13 Chest/axilla: Inspection: normal, 14:13 Respiratory: the patient does not display signs of respiratory distress, Respirations: normal, 14:13 Abdomen/GI: Inspection: abdomen appears normal, 14:13 Musculoskeletal/extremity: Extremities: noted in the left foot: tenderness and pain to dorsal side of mid foot and lateral side of foot, Perfusion: the extremity is normally perfused throughout, the left foot Sensation intact. 14:13 Neuro: Orientation: to person, place \T\ time. Mentation: is normal, Vital Signs: 14:01 BP 156 / 87; Pulse 81; Resp 15; Temp 97.5(TE); Pulse Ox 100% on R/A; Weight 72.57 kg; cm10 Height 5 ft. 7 in. ; Pain 7/10; 14:01 Body Mass Index 25.06 (72.57 kg, 170.18 cm) cm10 14:01 Pain Scale: Adult cm10 MDM: 14:01 Medical Screening Exam initiated cp 14:36 Data reviewed: vital signs, nurses notes, radiologic studies, plain films, and as a cp result, I will discharge patient. 14:36 Differential diagnosis: dislocation, closed fracture, contusion. Counseling: I had a cp detailed discussion with the patient and/or guardian regarding the historical points, exam findings, and any diagnostic results supporting the discharge/admit diagnosis, radiology results, to return to the emergency department if symptoms worsen or persist or if there are any questions or concerns that arise at home. Response to treatment: the patient's symptoms have mildly improved after treatment, and as a result, I will discharge patient. 06/14 14:01 Order name: XRAY Foot LEFT 3 View; Complete Time: 14:56 cp 06/14 14:56 Interpretation: Reviewed report. cp 06/14 14:35 Order name: Walking boot; Complete Time: 15:22 cp Administered Medications: No medications were administered Disposition: 06/15 13:36 Chart complete. cp Disposition Summary: 06/14/24 14:36 Discharge Ordered Notes: Location: Home cp Problem: new cp Symptoms: have improved cp Condition: Stable cp Diagnosis - Other sprain of left foot cp Followup: cp - With: Taqueria Schmidt MD - When: 1 week - Reason: pain continues Discharge Instructions: - Discharge Summary Sheet cp - Foot Sprain cp - Walking Boot, Adult cp Forms: - Medication Reconciliation Form cp - Antibiotic Education cp - Prescription Opioid Use cp - Patient Portal Instructions cp - Leadership Thank You Letter cp Prescriptions: - Anaprox DS 550 mg Oral Tablet - take 1 tablet ORAL route every 12 hours As needed; 20 tablet; Refills: 0, cp Product Selection Permitted Signatures: Dispatcher [employer] EDAR John Chaney PA PA cp Martinez, Clarissa RN RN cm10 Corrections: (The following items were deleted from the chart) 06/14 14:02 14:02 Foot Left 3 View+RAD.RAD.BRZ ordered. EDMS EDMS
--- NOTE | 2024-06-14 14:37 | ER ---
Nurse's Notes [facility] Name: Stephania Brunson Age: 58 yrs Sex: Female : 1965 Arrival Date: 06/14/2024 Time: 13:36 Bed DX3 Private MD: Diagnosis: Other sprain of left foot Presentation: 06/14 14:01 Chief complaint: Patient states: Left foot pain s/p trip and fall this am. Pt reports cm10 didn't hit head. Pain is worse when walking. Coronavirus screen: Client denies travel out of the [place] in the last 14 days. Ebola Screen: Patient denies travel to an Ebola-affected area in the 21 days before illness onset. Initial Sepsis Screen: Does the patient meet any 2 criteria? No. Patient's initial sepsis screen is negative. Does the patient have a suspected source of infection? No. Patient's initial sepsis screen is negative. Risk Assessment: Do you want to hurt yourself or someone else? Patient reports no desire to harm self or others. Onset of symptoms was June 14, 2024. 14:01 Method Of Arrival: Ambulatory cm10 14:01 Acuity: ZAK 4 cm10 Triage Assessment: 14:02 General: Appears in no apparent distress. comfortable, Behavior is calm, cooperative. cm10 Pain: Complains of pain in lateral side of left foot and arch of left foot Pain does not radiate. Pain currently is 7 out of 10 on a pain scale. Pain began suddenly. Neuro: No deficits noted. Level of Consciousness is awake, alert, obeys commands, Oriented to person, place, time, situation, Appropriate for age. Respiratory: No deficits noted. Airway is patent Respiratory effort is even, unlabored, Respiratory pattern is regular, symmetrical. Musculoskeletal: Reports pain in lateral side of left foot and arch of left foot. 15:22 Injury Description: Left foot pain s/p fall. cm10 Historical: - Allergies: 14:02 No Known Allergies; cm10 - PMHx: 14:02 depressive disorder; cm10 - PSHx: 14:02 breast implants; partial hysterectomy; cm10 - Immunization history:: Adult Immunizations up to date. - Infectious Disease History:: Denies. - Social history:: Smoking status: Patient denies any tobacco usage or history of. Screenin:21 [facility] ED Fall Risk Assessment (Adult) History of falling in the last 3 months, cm10 including since admission Yes- single mechanical fall (1 pt) Confusion or Disorientation No (0 pts) Intoxicated or Sedated No (0 pts) Impaired Gait No (0 pts) Mobility Assist Device Used No (0 pt) Altered Elimination No (0 pt) Score/Fall Risk Level 0 - 2 = Low Risk Oriented to surroundings, Maintained a safe environment, Hourly rounding (assess needs \T\ fall precautionary measures) done. Abuse screen: Denies threats or abuse. Denies injuries from another. Nutritional screening: No deficits noted. Tuberculosis screening: No symptoms or risk factors identified. Vital Signs: 14:01 BP 156 / 87; Pulse 81; Resp 15; Temp 97.5(TE); Pulse Ox 100% on R/A; Weight 72.57 kg; cm10 Height 5 ft. 7 in. ; Pain 7/10; 14:01 Body Mass Index 25.06 (72.57 kg, 170.18 cm) cm10 14:01 Pain Scale: Adult cm10 ED Course: 13:39 Patient arrived in ED. al6 13:44 John Chaney PA is PHCP. cp 13:44 Dacia Small MD is Attending Physician. cp 14:02 Triage completed. cm10 14:02 Arm band placed on right wrist. Patient placed in waiting room. cm10 14:33 XRAY Foot LEFT 3 View In Process Unspecified. EDMS 14:36 Taqueria Schmidt MD is Referral Physician. cp 15:20 No provider procedures requiring assistance completed. Patient did not have IV access cm10 during this emergency room visit. Ortho shoe applied to left foot. 15:21 Patient has correct armband on for positive identification. Provided Education on: cm10 Follow-up instructions. Administered Medications: No medications were administered Medication: 15:22 VIS not applicable for this client. cm10 Outcome: 14:36 Discharge ordered by . cp 15:20 Discharged to home ambulatory, cm10 15:20 Condition: good 15:20 Discharge instructions given to patient, Instructed on discharge instructions, follow up and referral plans. medication usage, Demonstrated understanding of instructions, follow-up care, medications, Prescriptions given X 1, 15:22 Patient left the ED. cm10 Signatures: Dispatcher [employer] EDME John Chaney PA PA cp Martinez, Clarissa, RN RN cm10 Charla Griffith al6
--- NOTE | 2024-06-14 14:39 | RAD REPORT ---
EXAM: Foot Left 3 View HISTORY: PAIN COMPARISON: None FINDINGS: Bones: No acute fracture identified. Alignment:No significant malalignment. Degenerative changes:Plantar and dorsal aspect calcaneal spurs. Moderate degenerative changes are pre sent at the first MTP. Other: n/a IMPRESSION: No evidence of acute osseous abnormality involving the imaged foot.
[2024-06-14 15:56] VITALS: BP 156/87; TEMP 97.5; O2SAT 100
== END 2024-06-14 15:22 | disposition home or self-care (01) ==
LOC: ER 13:36
DX: S93.692A Other sprain of left foot, initial encounter (principal); W18.09XA Striking against other object with subsequent fall, initial encounter
CPT/HCPCS: 99283